=== PATIENT | female | born 1955 | race Caucasian/White ===

== ENCOUNTER → 2017-09-09 | Day surgery (SDC) | payer MEDICAID ==
[~2017-09-09] VITALS: Ht 177.8 cm; Wt 100.5 kg
[~2017-09-09] MED LIST: *ONDANSETRON 4 MG VIAL PERIprocedural Use ONLY ONE; ACETAMINOPHEN 1000 MG/100 ML 100 ML IV ONE; CEPH-459 PO; CHLORHEXIDINE GLUCONATE 2 % 1 PACK (2 CLOTHS) TOPICAL PRN; DO NOT ADM ANY ANTICOAGULANT DRUGS PRN; LACTATED RINGER'S 1000 ML IV PRN; METOPROLOL TARTRATE 25 MG TAB PO PRN; ONDANSETRON HCL 4 MG/2 ML VIAL IV PUSH PRN; PERC5TAB12 PO; POVIDONE IODINE 5% (ANTISEPSIS KIT) 4 APPLICATIONS EACH NARE PRN; SODIUM CHLORID 0.9% 500 ML IV PRN; SUGAMMADEX SODIUM 200 MG/2 ML VIAL IV PUSH ONE; ceFAZolin 2 GM PREMIX 50 ML IV SCH; oxyCODONE/ACETAMINOPHEN 5 MG/325 MG TAB PO PRN
[2017-09-09 09:19] LABS: BASOPHIL # 0.1 TH/MM3 (0-0.2); EOSINOPHIL # 0.1 TH/MM3 (0-0.4); EOSINOPHIL % 2.3 % (0.0-4.0); HEMATOCRIT 38.2 % (35.0-46.0); LYMPH % 33.4 % (9.0-44.0); LYMPHOCYTE # 1.8 TH/MM3 (1.0-4.8); MEAN CELL VOLUME 92.5 FL (80.0-100.0); MEAN CORPUSCULAR HEMOGLOBIN 31.5 PG (27.0-34.0); MEAN CORPUSCULAR HGB CONC 34.1 % (32.0-36.0); MEAN PLATELET VOLUME 7.4 FL (7.0-11.0); MONOCYTE # 0.4 TH/MM3 (0-0.9); NEUT % 56.3 % (16.0-70.0); PLATELET COUNT 257 TH/MM3 (150-450); RED BLOOD COUNT 4.12 MIL/MM3 (4.00-5.30); RED CELL DISTRIBUTION WIDTH 14.4 % (11.6-17.2); WHITE BLOOD COUNT 5.3 TH/MM3 (4.0-11.0)
--- NOTE | 2017-09-09 12:06 | PD.OP ---
Operative Report Date of Surgery: Sep 09, 2017 Preoperative Diagnosis: (1) Ureteral calculus, left Postoperative Diagnosis: (1) Ureteral calculus, left Procedure: Cystoscopy, removal of left ureteral stent, left ureteroscopy with laser lithotripsy, left retrograde pyelogram and left ureteral catheter insertion. Anesthesia: General Surgeon: Sanju Abarca Employee Relations Director(s): None Operation and Findings: Indication for procedures: Case of a pleasant 62-year-old female with a history of an obstructing 9 mm left distal ureteral calculus who is status post left stent placement and presents today for definitive management of the calculus. Operative procedure in detail: Patient was brought to the operating suite and placed supine on the OR table. She was then placed under general anesthesia. She was then repositioned in the dorsolithotomy position and prepped and draped in normal sterile fashion. After appropriate timeout was undertaken I proceeded with cystoscopic evaluation utilizing the rigid cystoscope with a 20 [place] sheath and the 30 lens. The previously placed left ureteral stent could be seen protruding from the left ureteral orifice. Remainder cystoscopic evaluation failed to demonstrate any abnormalities. I proceeded with removing the left ureteral stent I grasped it with flexible forceps. The removed stent was carefully inspected ascertain that no stent fragments were left behind. I then proceeded with passing a sensor 0.035 wire of the patient's left ureter into the left kidney under fluoroscopy. With the wire in place, the cystoscope was withdrawn and the wire secured to sterile drape with a hemostat. The self dilating ureteroscope was then passed alongside this wire up to the point of the obstructing stone and the stone broken up into tiny pieces utilizing the 200 holmium laser fiber. Once the stone was broken up several the larger fragments were retrieved with the 2.4 [place] stone basket and sent off for chemical composition analysis. Ureteroscope was withdrawn and the cystoscope was reintroduced with the previously placed wire backloaded. A 6 [place] open- ended ureteral catheter was advanced over this wire several centimeters cephalad from the ureteral orifice and the wire withdrawn. A left retrograde pyelogram study was then performed that demonstrated prompt filling and drainage of the collecting system. The open-ended catheter was then advanced up into the left renal pelvis and the wire withdrawn. The cystoscope was withdrawn and a 16 [place] 10 cc [place] catheter was placed and the ureteral catheter anchored to the [place]riz[place]a via a connector. It is anticipated that the Brizuela and ureteral catheter will be removed within the next several hours. The patient tolerated the procedures without complications and was transferred to the PACU in satisfactory condition. Sanju Abarca MD Sep 09, 2017 12:06
[2017-09-09 14:25] VITALS: BP 151/84; PULSE 75; RESP 18; TEMP 97.8; O2SAT 99
--- NOTE | 2017-09-09 15:39 | EKG ---
Date Performed: 09/09/2017 Time Performed: 08:28:14 PTAGE: 62 years EKG: Sinus rhythm WITH OCCASIONAL VENTRICULAR PREMATURE COMPLEXES WITH MARKED RHYTHM IRREGULARITY, POSSIBLE NON-CONDUC TEJ PAC, SA BLOCK, AV BLOCK, OR SINUS PAUSE ABNORMAL RHYTHM ECG NO PREVIOUS TRACING DOCTOR: Diego Garza Interpretating Date/Time 09/09/2017 15:37:28
== END | disposition home or self-care (01) ==
LOC: HSDC 07:44
PROVIDERS: ATTEND Urology
DX: N20.1 Calculus of ureter (principal); Z01.818 Encounter for other preprocedural examination; Z01.810 Encounter for preprocedural cardiovascular examination
CPT/HCPCS: 00918; 52356; 82365; 82370; 85025; 88300; 93005; C1769; J0131; J0690; J2405; J3010; J7120